=== PATIENT | female | born 1985 | race African-American/Black ===

== ENCOUNTER 2018-02-16 08:36 | Emergency (ER) | payer MEDICAID ==
[2018-02-16] MEDS ORDERED: Sodium Chloride 0.9% 1,000 ML IV ONE (09:05)
[2018-02-16] MEDS ORDERED: Ondansetron 4 MG/2 ML SDV IVPUSH ONE (09:05)
--- NOTE | 2018-02-16 10:40 | EDM.PDOC ---
ED HPI GENERAL MEDICAL PROBLEM - General Chief Complaint: Respiratory Problem Stated Complaint: COUGH AND BODY ACHES Time Seen by Provider: 02/16/18 08:50 Source of Information: Reports: Patient, RN Notes Reviewed History Limitations: Reports: No Limitations - History of Present Illness INITIAL COMMENTS - FREE TEXT/NARRATIVE: The patient states that she was diagnosed with both Influenza A and B at the office of her PCP 2 days ago, 02/14/2018. She states that she declined an offer to be started on Tamiflu at that time, likely because she was informed that it may not be of benefit, and the patient did not want to take a medication if it was not necessary. The patient now presents with a history of persistent cough, preventing her from being able to sleep, generalized body aches, and subjective fever with chills. She has had vomiting and watery diarrhea since 02/14/2018, although she denies having any abdominal pain or cramps, or any urinary symptoms. The patient has a history of rheumatoid arthritis, for which she is treated with methotrexate. She states that she has been out since this past , , although she has a prescription ready to be picked up at the pharmacy. The patient's PCP is Radha Melton. The patient did not receive an influenza vaccine this season. Generalized Pain Score (Numeric/FACES): 8 - Related Data Allergies Allergy/AdvReac Type Severity Reaction Status Date / Time No Known Allergies Allergy Verified 02/16/18 08:51 Home Meds: Home Meds Ondansetron [Zofran ODT] 1 tab PO Q8H PRN #10 tab.dis 02/16/18 [Rx] Past Medical History Musculoskeletal History: Reports: RA - Past Surgical History GI Surgical History: Reports: Hernia, Abdominal (umbilical) Female Surgical History: Reports: Section (x 1) Social & Family History - Tobacco Use Smoking Status *Q: Current Every Day Smoker Years of Tobacco use: 19 Packs/Tins Daily: 0.5 Packs/Tins Daily Comment: Down from 2 ppd - Caffeine Use Caffeine Use: Reports: Coffee, Energy Drinks, Soda, Tea - Alcohol Use Alcohol Use History: Yes Alcohol Use Frequency: Socially - Recreational Drug Use Recreational Drug Use: Yes Drug Use in Last 12 Months: Yes Recreational Drug Type: Reports: Marijuana/Hashish (smokes on occasion) Recreational Drug Use Frequency: Socially Recreational Drug Last Use: [id number] - Living Situation & Occupation Living situation: Reports: Single, with Family (Son, sister, nephew) 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 ED EXAM, GENERAL - Physical Exam Exam: See Below Exam Limited By: No Limitations General Appearance: Alert, WD/WN, Other (Frequent dry-sounding cough) Eye Exam: Bilateral Eye: EOMI, Normal Inspection Ears: Normal External Exam, Normal Canal, Hearing Grossly Normal, Other ( Biltaral TM scarring noted) Nose: Normal Inspection Throat/Mouth: Normal Inspection, Normal Lips, Normal Teeth, Normal Gums, Normal Oropharynx, Normal Voice, No Airway Compromise Head: Atraumatic, Normocephalic Neck: Normal Inspection, Supple, Non-Tender, Full Range of Motion. No: Lymphadenopathy (L), Lymphadenopathy (R) Respiratory/Chest: No Respiratory Distress, Lungs Clear, Normal Breath Sounds, No Accessory Muscle Use Cardiovascular: Normal Peripheral Pulses, No Edema, No Gallop, No JVD, No Murmur , No Rub, Tachycardia (regular) Peripheral Pulses: 4+: Radial (L), Radial (R) GI/Abdominal: Normal Bowel Sounds, Soft, Non-Tender, No Organomegaly, No Distention, No Abnormal Bruit, No Mass (Female) Exam: Deferred Rectal (Female) Exam: Deferred Back Exam: Normal Inspection, Full Range of Motion, NT Extremities: Normal Inspection, Normal Range of Motion, No Pedal Edema, Normal Capillary Refill Neurological: Alert, Oriented, Normal Cognition, No Motor/Sensory Deficits Psychiatric: Normal Affect Skin Exam: Warm, Dry, Intact, Normal Color, No Rash Course - Vital Signs Last Recorded V/S: Last Vital Signs Temp 36.3 C 02/16/18 08:48 Pulse 144 H 02/16/18 08:48 Resp 18 02/16/18 08:48 BP 112/64 02/16/18 08:48 Pulse Ox 95 02/16/18 08:48 - Orders/Labs/Meds Labs: Laboratory Tests 02/16/18 02/16/18 Range/Units 09:20 09:20 WBC 17.16 H (3.98-10.04) K/mm3 RBC 4.43 (3.98-5.22) M/mm3 Hgb 12.6 (11.2-15.7) gm/L Hct 38.3 (34.1-44.9) % MCV 86.5 (79.4-94.8) fl MCH 28.4 (25.6-32.2) pg MCHC 32.9 (32.2-35.5) g/dl RDW Std Deviation 42.5 (36.4-46.3) fL Plt Count 362 (182-369) K/mm3 MPV 9.8 (9.4-12.3) fl Neutrophils % (Manual) 83 H (40-60) % Band Neutrophils % 2 (0-10) % Lymphocytes % (Manual) 10 L (20-40) % Atypical Lymphs % 0 % Monocytes % (Manual) 5 (2-10) % Eosinophils % (Manual) 0 L (0.7-5.8) % Basophils % (Manual) 0 L (0.1-1.2) Platelet Estimate Adequate RBC Morph Comment Normal Sodium 136 (136-145) mEq/L Potassium 3.0 L (3.5-5.1) mEq/L Chloride 98 (98-107) mEq/L Carbon Dioxide 25 (21-32) mEq/L Anion Gap 16.0 H (5-15) BUN 5 L (7-18) mg/dL Creatinine 0.8 (0.55-1.02) mg/dL Est Cr Clr Drug Dosing 87.99 mL/min Estimated GFR (MDRD) > 60 (>60) mL/min BUN/Creatinine Ratio 6.3 L (14-18) Glucose 115 H (74-106) mg/dL Calcium 8.8 (8.5-10.1) mg/dL Magnesium 1.9 (1.8-2.4) mg/dl Total Bilirubin 0.4 (0.2-1.0) mg/dL AST 19 (15-37) U/L ALT 19 (14-59) U/L Alkaline Phosphatase 77 (46-116) U/L Total Protein 7.4 (6.4-8.2) g/dl Albumin 3.0 L (3.4-5.0) g/dl Globulin 4.4 gm/dL Albumin/Globulin Ratio 0.7 L (1-2) Meds: Medications Discontinued Medications Generic Name Dose Route Start Last Admin Trade Name Freq PRN Reason Stop Dose Admin Sodium Chloride 1,000 mls @ 999 mls/hr 02/16/18 09:05 02/16/18 09:22 Normal Saline IV 02/16/18 10:05 999 mls/hr ONETIME ONE Administration Ondansetron HCl 4 mg 02/16/18 09:05 02/16/18 09:23 Zofran IVPUSH 02/16/18 09:06 4 mg ONETIME ONE Administration Potassium Chloride 40 meq 02/16/18 10:41 02/16/18 10:50 Klor-Con M20 PO 02/16/18 10:42 40 meq ONETIME ONE Administration - Re-Assessments/Exams Free Text/Narrative Re-Assessment/Exam: 02/16/18 10:41 The patient's potassium has returned low at 3.0. I have ordered 40 mEq oral potassium chloride. The remainder of the patient's workup is unremarkable. She may safely be discharged home with a prescription for Zofran. Obviously, the patient is well outside the therapeutic window for treatment with Tamiflu. 02/16/18 11:05 2-view chest radiograph is read by Dr. Thurston as: Patchy perihilar areas of increased density are seen on both sides of the chest. Heart size and mediastinum are normal. Bony structures are unremarkable. 1. Findings as noted above which is felt compatible with bronchopneumonia. 02/16/18 12:58 Delay in discharging the patient due to exceedingly busy conditions in the ED. I will discharge the patient home with a prescription for Zofran, and a note for work through Wednesday. Departure - Departure Time of Disposition: 12:59 Disposition: Home, Self-Care 01 Condition: Fair Clinical Impression: Influenza A, Influenza B, Nausea and vomiting, Influenzal pneumonia, Hypokalemia - Discharge Information *PRESCRIPTION DRUG MONITORING PROGRAM REVIEWED*: Not Applicable *COPY OF PRESCRIPTION DRUG MONITORING REPORT IN PATIENT RUMA: Not Applicable Prescriptions: Ondansetron [Zofran ODT] 1 tab PO Q8H PRN #10 tab.dis PRN Reason: Nausea/Vomiting Instructions: Influenza, Adult, [id number] Referrals: Radha Melton PA-C [Primary Care Provider] - Forms: ED Department Discharge, ED Return to Work/School Form Additional Instructions: You were seen in the emergency room for persistent cough, body aches, and chills , after being diagnosed with both influenza A and B. Workup in the ER included blood work and a chest x-ray. Your workup found your potassium level to be mildly depressed at 3.0. You were given oral potassium replacement in the ER. Your chest x-ray found that you have mild viral pneumonia. As discussed, unfortunately, there are no medicines to treat viral pneumonia. It will have to run its course. A prescription for the anti-nausea medicine Zofran has been sent to the [facility], [address] [place] [address]. Dissolve 1 tablet on your tongue up to every 8 hours, as needed for nausea/vomiting. Stay adequately hydrated. Gatorade or Powerade are best. A note for work through 02/19/2018 has been provided. If you need to be off work longer than that, please follow-up with your PCP, Radha Melton. If any other problems, including worsening shortness of breath, please do not hesitate to return to the ER.
[2018-02-16] MEDS ORDERED: Potassium Chloride 20 MEQ Tab.ER PO ONE (10:41)
--- NOTE | 2018-02-16 11:00 | CR ---
Chest: Two views of the chest were obtained. Comparison: No prior chest x-ray. Patchy perihilar areas of increased density are seen on both sides of the chest. Heart size and mediastinum are normal. Bony structures are unremarkable. Impression: 1. Findings as noted above which is felt compatible with bronchopneumonia. Diagnostic code #3
== END 2018-02-16 13:14 | disposition home or self-care (01) ==
LOC: JD.ED 08:36
DX: J11.00 Influenza due to unidentified influenza virus with unspecified type of pneumonia (principal); E87.6 Hypokalemia; F17.210 Nicotine dependence, cigarettes, uncomplicated
CPT/HCPCS: 36415; 71046; 80053; 83735; 85007; 85027; 96361; 96374; 99284; A9270; J2405; J7040

== ENCOUNTER 2018-05-21 13:43 | Emergency (ER) | payer MEDICAID ==
[2018-05-21] MEDS ORDERED: Ibuprofen 800 MG Tab PO ONE (14:50)
[2018-05-21] MEDS ORDERED: Acetaminophen/oxyCODONE 325-5 MG Tab PO ONE (14:51)
[2018-05-21] MEDS ORDERED: predniSONE 20 MG Tab PO ONE (14:51)
--- NOTE | 2018-05-21 14:55 | EDM.PDOC ---
ED HPI GENERAL MEDICAL PROBLEM - General Chief Complaint: General Stated Complaint: FULL BODY PAIN Time Seen by Provider: 05/21/18 14:50 Source of Information: Reports: Patient History Limitations: Reports: No Limitations - History of Present Illness INITIAL COMMENTS - FREE TEXT/NARRATIVE: 32-year-old female who has rheumatoid arthritis presents to the ED with an acute flareup of rheumatoid disease. At present she has pain and inflammation in her temporomandibular joints the base of her skull on the atlantoaxial joint both elbows both wrists and all of her fingers. This also involves her knees right worse than the left both ankles both feet involving the toes and MCP joints. He is currently on methotrexate therapy. Plan I will not do any lab work at this time. She would like to try go to work this afternoon and she started a job yesterday for the first time doesn't want to miss work for fear of losing her job. We'll give her prednisone 30 mg by mouth with 1 Percocet 5/ 325 mg tablet and 800 mg of Motrin for acute pain relief. He'll be discharged on prednisone 20 mg twice a day for 7 days then 1 tablet in the morning only for another 7 days to reduce acute flare of rheumatoid. I will place her on meloxicam 15 mg once daily every morning and Percocet tabs 5/3/25 milligrams one or 2 every 4-6 hours for pain relief when not at work or before bed to help sleep. 15 tablets provided Onset: Gradual Onset Date: 05/18/18 (Worse and she went to work yesterday for the first time as she had to stand on a hard tile floor. 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 Both elbows both wrists both hands and fingers both knees right worse than the left both ankles both feet and toes.) Quality: Reports: Ache, Other Severity: Severe (Constant ache and throbbing pain worse with movement. 10 out of 10) Improves with: Reports: Rest Worsens with: Reports: Other, Movement Context: Reports: Other (Comment chronic rheumatoid arthritis with an acute flare.). Denies: Activity (Especially trying to walk.), Exercise, Lifting, Sick Contact, Trauma Associated Symptoms: Reports: Malaise. Denies: Fever/Chills, Headaches, Loss of Appetite, Nausea/Vomiting, Rash, Seizure, Shortness of Breath, Syncope, Weakness Treatments DELICATESSEN SLICER: Reports: Acetaminophen Generalized Pain Score (Numeric/FACES): 10 - Related Data Allergies Allergy/AdvReac Type Severity Reaction Status Date / Time No Known Allergies Allergy Verified 05/21/18 13:55 Home Meds: Home Meds Hydroxychloroquine [Plaquenil] 200 mg PO BID 05/21/18 [History] Meloxicam 15 mg PO DAILY #12 tablet 05/21/18 [Rx] Methotrexate Sodium [Methotrexate] 5 tab PO ASDIRECTED 05/21/18 [History] oxyCODONE HCl/Acetaminophen [Percocet 5-325 mg Tablet] 1 - 2 each PO Q4H PRN # 16 tablet 05/21/18 [Rx] predniSONE [Deltasone] 20 mg PO ASDIRECTED #21 tablet 05/21/18 [Rx] Past Medical History Musculoskeletal History: Reports: RA (Diagnosed 6 years ago) - Past Surgical History GI Surgical History: Reports: Hernia, Abdominal Female Surgical History: Reports: Section Social & Family History - Tobacco Use Smoking Status *Q: Current Every Day Smoker Years of Tobacco use: 10 Packs/Tins Daily: 0.5 - Caffeine Use Caffeine Use: Reports: Coffee, Energy Drinks, Soda, Tea - Recreational Drug Use Recreational Drug Use: No - Living Situation & Occupation Living situation: Reports: Single, with Family (Son, sister, nephew) 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 Denies : Fever, Chills HEENT: Reports: Other Respiratory: Reports: No Symptoms (Bilateral temporomandibular joint pain) Cardiovascular: Reports: No Symptoms Endocrine: Reports: Fatigue GI/Abdominal: Reports: No Symptoms : Reports: No Symptoms Musculoskeletal: Reports: Joint Pain (Severe joint pain involving bilateral temporomandibular joints atlantoaxial joint in her cervical spine at the base of her skull. Both elbows both wrists both hands both fingers involving MCP joints. It also involves both knees right worse than the left. Both ankles. Both metatarsals of her feet and toes.) Skin: Reports: No Symptoms Neurological: Reports: No Symptoms Psychiatric: Reports: No Symptoms Hematologic/Lymphatic: Reports: No Symptoms Immunologic: Reports: No Symptoms ED EXAM, GENERAL - Physical Exam Exam: See Below Exam Limited By: No Limitations General Appearance: Alert, WD/WN, Moderate Distress Eye Exam: Bilateral Eye: Normal Inspection Head: Facial Tenderness (Ark pain and tenderness over both temporomandibular joints with moderate trismus.) Neck: Limited Range of Motion (He has very limited motion of her neck particularly flexion or extension is 15 extension and 10 flexion) Respiratory/Chest: No Respiratory Distress ( and 10 of lateral flexion bilaterally.), Lungs Clear, Normal Breath Sounds, No Accessory Muscle Use Cardiovascular: Normal Peripheral Pulses, Regular Rate, Rhythm, No Edema, No Gallop, No Murmur Peripheral Pulses: 3+: Posterior Tibial (L), Posterior Tibial (R), Dorsalis Pedis (L), Dorsalis Pedis (R) GI/Abdominal: Normal Bowel Sounds, Soft, Non-Tender, No Organomegaly, No Abnormal Bruit, No Mass, Pelvis Stable Back Exam: Decreased Range of Motion Extremities: Other (He has active synovitis in both elbows both wrists left worse in the right both hands particularly the MCP joints bilaterally and her fingers. There is active inflammation in both knees right worse than left. Both ankles have very active synovitis and are warm to palpation as are both feet and her toes.) Neurological: Alert, Oriented, CN II-XII Intact, Normal Cognition Psychiatric: Other Skin Exam: Warm, Dry (A lot of pain.), Intact, Normal Color, No Rash Course - Vital Signs Last Recorded V/S: Last Vital Signs Temp 36.6 C 05/21/18 13:57 Pulse 89 05/21/18 13:57 Resp 16 05/21/18 13:57 BP 123/88 05/21/18 13:57 Pulse Ox 100 05/21/18 13:57 - Orders/Labs/Meds Meds: Medications Discontinued Medications Generic Name Dose Route Start Last Admin Trade Name Freq PRN Reason Stop Dose Admin Ibuprofen 800 mg 05/21/18 14:50 05/21/18 14:58 Motrin PO 05/21/18 14:51 800 mg ONETIME ONE Administration Oxycodone/Acetaminophen 1 tab 05/21/18 14:51 05/21/18 14:56 Percocet 325-5 Mg PO 05/21/18 14:52 1 tab ONETIME ONE Administration Prednisone 30 mg 05/21/18 14:51 05/21/18 14:58 Prednisone PO 05/21/18 14:52 30 mg ONETIME ONE Administration - Radiology Interpretation Free Text/Narrative:: 32-year-old female who is known to suffer from rheumatoid arthritis presents the ED with essentially a severe flareup of rheumatological inflammation in her joints. It is affecting her temporomandibular joints in her face the atlantoaxial joint in her cervical spine both elbows both wrists both hands and fingers. Both knees both ankles and both feet. Slight stiffness appreciated her lower back as well. 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 She wishes to try continue to work if at all possible. I will give her 800 mg of Motrin here with prednisone 30 mg by mouth and 1 Percocet tablet in the hopes that she will be able to go to work today. I then wrote a prescription for meloxicam 15 mg once daily every morning for 12 days Deltasone 20 mg twice a day for 7 days with breakfast and supper and then once a day in the morning for another 7 days. Percocet tabs one or 2 every 4-6 hours for pain relief 16 tablets. This is to be taken mainly before bed to help her sleep. She will be following up with her personal care physician in the near future. Departure - Departure Time of Disposition: 14:53 Disposition: Home, Self-Care 01 Condition: Fair Clinical Impression: Rheumatoid arthritis flare - Discharge Information *PRESCRIPTION DRUG MONITORING PROGRAM REVIEWED*: Not Applicable *COPY OF PRESCRIPTION DRUG MONITORING REPORT IN PATIENT RUMA: Not Applicable Prescriptions: Meloxicam 15 mg PO DAILY #12 tablet oxyCODONE HCl/Acetaminophen [Percocet 5-325 mg Tablet] 1 - 2 each PO Q4H PRN # 16 tablet PRN Reason: pain relief. predniSONE [Deltasone] 20 mg PO ASDIRECTED #21 tablet Instructions: Arthritis, [id number] Referrals: PCP,None [Primary Care Provider] - Forms: ED Department Discharge Additional Instructions: Evaluation in the emergency room today in regards to acute rheumatoid arthritis flareup. It is involved all of your joints including her temporomandibular joint severe jaw atlantal HCl joint the base of your neck at the base of your skull. Elbows wrists and hands fingers knees ankles and feet and toes. Treated in the ED with 1 Percocet 5/3/25 milligram tablet and 800 mg of Motrin. Also first dose of steroid prednisone 30 mg was given by mouth. This will take about 4-6 hours to start to work on the joints to relieve pain and inflammation. Is to medications will start to help within the next 45 minutes to an hour and hopefully will allow you to get to work. Prescriptions have been written for the same type of medication meloxicam 15 mg once daily every morning for next 12 days to reduce pain and inflammation. Deltasone 20 mg twice daily breakfast and supper for 7 days and once in the morning only for another 7 days to reduce inflammation. Pain pills Percocet 5/3/25 milligrams one or 2 every 4-6 hours for pain relief while not at work. Also cannot operate a motor vehicle if you take these tablets. Lopressor personal care physician if not markedly improved in the next 3-5 days
== END 2018-05-21 15:05 | disposition home or self-care (01) ==
LOC: JD.ED 13:43
DX: M06.9 Rheumatoid arthritis, unspecified (principal); F17.210 Nicotine dependence, cigarettes, uncomplicated; Z79.899 Other long term (current) drug therapy
CPT/HCPCS: 99283; A9270; 99284